=== PATIENT | female | born 1995 | race Caucasian/White ===

== ENCOUNTER 2020-09-10 14:06 | Inpatient (IN) | payer OTHER ==
[2020-09-10 20:21] VITALS: BMI 18.3
[2020-09-10] MEDS ORDERED: NALOXONE (NARCAN) HCL 4 MG/0.1 ML SPRAY NS PRN (23:44)
[2020-09-10] MEDS ORDERED: NICOTINE POLACRILEX 2 MG GUM BUC PRN (23:44)
[2020-09-10] MEDS ORDERED: ONDANSETRON *ODT* 4 MG TABLET SL PRN (23:44)
[2020-09-10] MEDS ORDERED: BISMUTH SUBSALICYLATE 524 MG/30 ML PO PRN (23:44)
[2020-09-10] MEDS ORDERED: IBUPROFEN 400 MG TABLET (FP) PO PRN (23:44)
[2020-09-10] MEDS ORDERED: MAG HYDROX/AL HYDROX/SIMETH 30 ML UNIT-DOSE CUP PO PRN (23:44)
[2020-09-10] MEDS ORDERED: MAGNESIUM HYDROX 2400MG/30ML ORAL SUSPENSION 30 ML CUP PO PRN (23:44)
[2020-09-10] MEDS ORDERED: ACETAMINOPHEN 325 MG TABLET (FP) PO PRN (23:44)
[2020-09-10] MEDS ORDERED: MENTHOL/PHENOL 1 EACH UD MM PRN (23:44)
[2020-09-10] MEDS ORDERED: MAGNESIUM CITRATE 300 ML BOTTLE PO PRN (23:44)
[2020-09-10] MEDS ORDERED: NALOXONE HCL 0.4 MG/ML VIAL IM PRN (23:44)
[2020-09-11] MEDS: hydrOXYzine PAMOATE 25 MG CAPSULE (FP) PO PRN ×3 (01:22→22:44)
[2020-09-11 10:07] LABS: BLOOD UREA NITROGEN 11.2 mg/dL (7-18); CALCIUM 8.9 mg/dL (8.5-10.1)
[2020-09-11 10:08] LABS: ALBUMIN 3.2 g/dl (3.4-5.0)
[2020-09-11 10:09] LABS: CREATININE 0.6 mg/dL (0.55-1.3)
[2020-09-11 10:11] LABS: BILIRUBIN,TOTAL 0.5 mg/dL (0.2-1); TOT PROT 6.7 g/dl (6.4-8.2)
[2020-09-11 10:14] LABS: HEMATOCRIT 33.8 % (32.4-45.2); HEMOGLOBIN 11.3 GM/dL (10.7-15.3); MCH 26.6 pg (25.7-33.7); MCHC 33.5 g/dl (32.0-36.0); MEAN CELL VOLUME 79.4 fl (80-96); PLATELET COUNT 309 K/MM3 (134-434); RBC 4.26 M/mm3 (3.60-5.2); RDW 15.2 % (11.6-15.6); WHITE BLOOD COUNT 5.9 K/mm3 (4.0-10.0)
[2020-09-11] MEDS: PRENATAL VITAMINS W/ FOLIC ACID TABLET (FP) PO SCH (10:33)
[2020-09-11] MEDS: diazePAM 5 MG TABLET PO SCH ×3 (10:43→22:44)
[2020-09-11] MEDS ORDERED: METHADONE HCL 10 MG TABLET (FOR DETOX USE ONLY) PO ONE (10:45)
[2020-09-11 10:58] LABS: HIV INTERPRETATION NEGATIVE (NEGATIVE)
[2020-09-11] MEDS: diazePAM 5 MG TABLET PO PRN (14:59)
[2020-09-11] MEDS: THIAMINE HCL 100 MG TABLET (FP) PO SCH (22:44)
[2020-09-11] MEDS: ACETAMINOPHEN 325 MG TABLET (FP) PO PRN (22:44)
[2020-09-11] MEDS: METHOCARBAMOL 500 MG TABLET PO PRN (22:44)
[2020-09-11] MEDS: MELATONIN 5 MG TABLETS PO SCH (22:47)
[2020-09-12] MEDS: METHOCARBAMOL 500 MG TABLET PO PRN ×2 (06:25→17:26)
[2020-09-12] MEDS: diazePAM 5 MG TABLET PO SCH ×4 (06:26→22:26)
[2020-09-12] MEDS ORDERED: METHADONE HCL 5 MG TABLET (FOR DETOX USE ONLY) ONE (09:06)
[2020-09-12] MEDS ORDERED: METHADONE HCL 10 MG TABLET (FOR DETOX USE ONLY) ONE (09:06)
[2020-09-12] MEDS: METHADONE (DETOX) 10 MG, METHADONE (DETOX) 5 MG PO SCH (10:52)
[2020-09-12] MEDS: PRENATAL VITAMINS W/ FOLIC ACID TABLET (FP) PO SCH (10:53)
[2020-09-12] MEDS: diazePAM 5 MG TABLET PO PRN (13:04)
[2020-09-12] MEDS: hydrOXYzine PAMOATE 25 MG CAPSULE (FP) PO PRN (17:25)
[2020-09-12] MEDS: ACETAMINOPHEN 325 MG TABLET (FP) PO PRN (19:47)
[2020-09-12] MEDS: MELATONIN 5 MG TABLETS PO SCH (22:25)
[2020-09-12] MEDS: THIAMINE HCL 100 MG TABLET (FP) PO SCH (22:26)
[2020-09-13] MEDS: hydrOXYzine PAMOATE 25 MG CAPSULE (FP) PO PRN ×2 (02:55→20:09)
[2020-09-13] MEDS: METHOCARBAMOL 500 MG TABLET PO PRN ×3 (02:56→22:38)
[2020-09-13] MEDS: diazePAM 5 MG TABLET PO SCH ×3 (05:50→22:36)
[2020-09-13] MEDS: ACETAMINOPHEN 325 MG TABLET (FP) PO PRN (05:51)
[2020-09-13] MEDS ORDERED: METHADONE HCL 5 MG TABLET (FOR DETOX USE ONLY) ONE (08:40)
[2020-09-13] MEDS ORDERED: METHADONE HCL 10 MG TABLET (FOR DETOX USE ONLY) ONE (08:40)
[2020-09-13] MEDS ORDERED: METHADONE HCL 10 MG TABLET (FOR DETOX USE ONLY) PO ONE (10:00)
[2020-09-13] MEDS: PRENATAL VITAMINS W/ FOLIC ACID TABLET (FP) PO SCH (10:10)
[2020-09-13] MEDS: METHADONE (DETOX) 10 MG, METHADONE (DETOX) 5 MG PO SCH (10:10)
[2020-09-13] MEDS: diazePAM 5 MG TABLET PO PRN (20:08)
[2020-09-13] MEDS: MELATONIN 5 MG TABLETS PO SCH (22:36)
[2020-09-13] MEDS: THIAMINE HCL 100 MG TABLET (FP) PO SCH (22:36)
[2020-09-14] MEDS: hydrOXYzine PAMOATE 25 MG CAPSULE (FP) PO PRN ×2 (05:58→15:20)
[2020-09-14] MEDS: diazePAM 5 MG TABLET PO SCH ×2 (05:58→18:12)
[2020-09-14] MEDS ORDERED: METHADONE HCL 10 MG TABLET (FOR DETOX USE ONLY) PO ONE (10:00)
[2020-09-14] MEDS: PRENATAL VITAMINS W/ FOLIC ACID TABLET (FP) PO SCH (10:51)
[2020-09-14] MEDS: METHOCARBAMOL 500 MG TABLET PO PRN ×2 (10:52→18:14)
[2020-09-14] MEDS: NAPROXEN 375 MG TABLET PO PRN ×2 (15:18→22:15)
[2020-09-14] MEDS: THIAMINE HCL 100 MG TABLET (FP) PO SCH (22:14)
[2020-09-14] MEDS: MELATONIN 5 MG TABLETS PO SCH (22:14)
[2020-09-15] MEDS: hydrOXYzine PAMOATE 25 MG CAPSULE (FP) PO PRN ×3 (02:51→22:14)
[2020-09-15] MEDS: METHOCARBAMOL 500 MG TABLET PO PRN ×4 (02:52→22:14)
[2020-09-15] MEDS ORDERED: METHADONE HCL 5 MG TABLET (FOR DETOX USE ONLY) PO ONE (05:00)
[2020-09-15] MEDS ORDERED: diazePAM 5 MG TABLET PO ONE ×2 (06:00→14:30)
[2020-09-15] MEDS: NAPROXEN 375 MG TABLET PO PRN ×2 (06:36→18:58)
[2020-09-15] MEDS: cloNIDine HCL 0.1 MG TABLET PO PRN ×2 (10:12→18:59)
[2020-09-15] MEDS: PRENATAL VITAMINS W/ FOLIC ACID TABLET (FP) PO SCH (10:12)
[2020-09-15] MEDS ORDERED: NICOTINE POLACRILEX 4 MG GUM BUC PRN (14:15)
[2020-09-15] MEDS: NICOTINE 21 MG/24 HOURS TOPICAL PATCH TD SCH (14:21)
[2020-09-15] MEDS: MELATONIN 5 MG TABLETS PO SCH (22:14)
[2020-09-15] MEDS: THIAMINE HCL 100 MG TABLET (FP) PO SCH (22:14)
[2020-09-16] MEDS: cloNIDine HCL 0.1 MG TABLET PO PRN ×2 (06:50→17:28)
[2020-09-16] MEDS: NAPROXEN 375 MG TABLET PO PRN ×2 (06:51→17:29)
[2020-09-16] MEDS: PRENATAL VITAMINS W/ FOLIC ACID TABLET (FP) PO SCH (10:37)
[2020-09-16] MEDS: NICOTINE 21 MG/24 HOURS TOPICAL PATCH TD SCH (10:37)
[2020-09-16] MEDS: METHOCARBAMOL 500 MG TABLET PO PRN ×2 (12:10→20:20)
[2020-09-16] MEDS: hydrOXYzine PAMOATE 25 MG CAPSULE (FP) PO PRN ×2 (12:40→22:13)
[2020-09-16] MEDS: MELATONIN 5 MG TABLETS PO SCH (22:13)
[2020-09-16] MEDS: THIAMINE HCL 100 MG TABLET (FP) PO SCH (22:13)
[2020-09-17 06:16] VITALS: TEMP 97.3
[2020-09-17] MEDS: NAPROXEN 375 MG TABLET PO PRN (06:20)
[2020-09-17 09:26] VITALS: BP 135/85; PULSE 109
[2020-09-17] MEDS: NICOTINE 21 MG/24 HOURS TOPICAL PATCH TD SCH (10:21)
[2020-09-17] MEDS: PRENATAL VITAMINS W/ FOLIC ACID TABLET (FP) PO SCH (10:21)
[2020-09-18 06:09] LABS: SARS-CoV-2 NAA Not Detected (Not Detected)
== END 2020-09-17 11:04 | disposition home or self-care (01) | DRG 773 ==
LOC: YASAS 14:06 → Y6N 23:36 → UNDOADMIN 23:36 → Y6N 09-11 01:37
PROVIDERS: ADMIT Allergy & Immunology; ATTEND Allergy & Immunology
PROC: HZ2ZZZZ Detoxification Services for Substance Abuse Treatment (ICD-10-PCS; principal; 2020-09-10)
DX: F11.23 Opioid dependence with withdrawal (principal); F13.20 Sedative, hypnotic or anxiolytic dependence, uncomplicated; F15.20 Other stimulant dependence, uncomplicated; F17.210 Nicotine dependence, cigarettes, uncomplicated; F19.280 Other psychoactive substance dependence with psychoactive substance-induced anxiety disorder; F19.24 Other psychoactive substance dependence with psychoactive substance-induced mood disorder; F41.9 Anxiety disorder, unspecified; F60.9 Personality disorder, unspecified; R09.89 Other specified symptoms and signs involving the circulatory and respiratory systems; R74.01 Elevation of levels of liver transaminase levels; Z88.0 Allergy status to penicillin
CPT/HCPCS: 36415; 80053; 85027; 86780; 87389; C9803; J0735; U0003; U0005

== ENCOUNTER 2020-09-10 20:25 | Emergency (ER) | payer OTHER ==
[2020-09-10 20:44] VITALS: BMI 22.0
[2020-09-10 21:44] LABS: BASO % 0.5 % (0-2.0); EOS % 1.2 % (0-4.5); HEMATOCRIT 35.5 % (32.4-45.2); LYMPH % 21.4 % (8-40); MCH 26.6 pg (25.7-33.7); MCHC 33.7 g/dl (32.0-36.0); MEAN PLT VOLUME 8.8 fl (7.5-11.1); MONO % 14.3 % (3.8-10.2); NEUT % 62.6 % (42.8-82.8); PLATELET COUNT 328 K/MM3 (134-434); RDW 15.4 % (11.6-15.6); WHITE BLOOD COUNT 6.3 K/mm3 (4.0-10.0)
[2020-09-10 21:56] LABS: CHLORIDE 101 mmol/L (98-107); SODIUM 137 mmol/L (136-145)
[2020-09-10 21:58] LABS: CALCIUM 8.9 mg/dL (8.5-10.1)
[2020-09-10 21:59] LABS: ALBUMIN 3.4 g/dl (3.4-5.0); ANION GAP 6 MMOL/L (8-16); BLOOD UREA NITROGEN 10.1 mg/dL (7-18); CO2 30 mmol/L (21-32); GLUCOSE,RANDOM 82 mg/dL (74-106)
[2020-09-10 22:02] LABS: CREATININE 0.6 mg/dL (0.55-1.3); SGOT/AST 59 U/L (15-37); SGPT/ALT 102 U/L (13-61)
[2020-09-10 22:03] LABS: BILIRUBIN,TOTAL 0.4 mg/dL (0.2-1)
[2020-09-10 22:04] LABS: TOT PROT 7.3 g/dl (6.4-8.2)
[2020-09-10 22:05] LABS: ALK PHOS 70 U/L (45-117)
[2020-09-10 22:30] VITALS: BP 130/85; PULSE 98; TEMP 98
== END 2020-09-10 22:55 | disposition home or self-care (01) ==
LOC: JER 20:25
DX: R07.0 Pain in throat (principal)
CPT/HCPCS: 36415; 71045-TC-FY; 80053; 84484; 85025; 93005; 93010; 99285-25; C9803; U0003; U0005